=== PATIENT | female | born 1950 | race Caucasian/White ===

== ENCOUNTER 2023-03-06 17:32 | Emergency (ER) | payer MEDICARE, SELFPAY ==
--- NOTE | ~2023-03-06 | XR_ITS ---
EXAMINATION: XR SOFT TISSUE NECK CLINICAL INDICATION: Foreign body sensation with question of toothbrush bristle in the throat COMPARISON: None available. TECHNIQUE: 2 views of the soft tissue neck were obtained. FINDINGS: Soft tissue films of the neck demonstrate a normal larynx, pharynx and upper trachea. No soft tissue swelling or opaque foreign body is demonstrated. Note made of some mild degenerative changes in the spine. The visualized lung apices appear unremarkable. XR/XR soft tissue neck IMPRESSION: Unremarkable examination. No radiopaque foreign body is seen.
[2023-03-06 18:12] VITALS: BP 155/77; PULSE 105; RESP 16; TEMP 36.3; O2SAT 96; BMI 28.7
--- NOTE | 2023-03-06 18:12 | ED_ITS ---
HPI - General Adult General Chief complaint: Skin/Abscess/Foreign Body Stated complaint: something stuck in her throat Time Seen by Provider: 03/06/23 18:38 Source: patient, RN notes reviewed and old records reviewed Mode of arrival: ambulatory History of Present Illness HPI narrative: 72-year-old female with a past medical history of HTN, diabetes, HLD, presenting to the ED complaining of foreign body sensation in throat/throat discomfort s/p eating a piece of turkey followed by brushing her teeth [employer]. States concern for toothbrush bristle being stuck in throat. Admits has been able to tolerate p.o. since incident however with continued pain. Denies difficulty/inability to swallow, SOB, throat closing sensation, fever/chills, nausea/vomiting. Denies eating fish or steak Onset (ago): hour(s) Related Data Allergies Allergy/AdvReac Type Severity Reaction Status Date / Time No Known Allergies Allergy Verified 03/06/23 18:12 Review of Systems Review of Systems: Constitutional: No Fever, No Chills ENT/Mouth: No Ear Pain, No Nasal Congestion, No Sinus Pain, No Hoarseness, + sore throat, No Rhinorrhea, No Swallowing Difficulty Cardiovascular: No Chest Pain, No SOB Respiratory: No Cough, No Wheezing Gastrointestinal: No Nausea, No Vomiting, No Abdominal painn Musculoskeletal: No joint pain, No Myalgias, No Joint Swelling Skin: No Skin Lesions, No rash Neuro: No Weakness Yes all other systems are reviewed and are negative Constitutional: Constitutional: Reports as per [facility] Past Medical History Attestation statement: The following information was validated with the patient. Source: old records reviewed Social History Smoked in Last 30 Days: No Use of substances other than those prescribed or required for medical reasons: No Advance Directives: No Advance Directives Information Provided: No Physical Exam ED Vital Signs: Vital Signs - 24 hr 03/06/23 18:12 Temperature 97.3 F Pulse Rate 105 H Respiratory Rate 16 Blood Pressure 155/77 H Pulse Oximetry 96 Oxygen Delivery Method Room Air BMI result Body Mass Index 28.7 Const General: cooperative, healthy appearing, no acute distress, alert and awake Orientation/consciousness: patient oriented x3 Limitations: no limitations HENMT Head: Yes normal to inspection and Yes atraumatic Ears: hearing grossly normal bilaterally, external ears normal and mastoids normal General nose exam: Normal external nose present Face and sinus: Yes normal facial exam Mouth: Normal oral and palatal mucosa present, no audible dysphonia and no drooling Throat: Yes posterior oropharynx normal, Yes tonsils normal, Yes uvula midline, No peritonsillar mass, No posterior oropharynx abnormal, No uvula laterally displaced and No uvular edema Eyes General: appearance normal, both eyes and all related structures EOM: EOMs intact bilaterally Neck Neck: Yes normal visual inspection, Yes no lymphadenopathy, Yes no meningeal signs, Yes supple, No anterior neck swelling and No torticollis Resp Effort & Inspection: normal respiratory effort, no respiratory distress and no stridor Auscultation: clear to auscultation bilaterally Cardio Rate: regular rate Skin Rashes: no rashes Wounds: no wounds Neuro General: patient oriented x3, tone normal and no meningeal signs Cranial nerves: Yes CN's II-XII intact bilaterally Gait exam (Neuro): Normal gait present Extrem General: Yes normal to inspection Course Course Course Narrative: RME: 72yo F w/PMHx HTN, DM, HLD c/o FB sensation to right throat s/p eating turkey followed by brushing teeth [employer]. States feels like toothbrush bristle stuc k in throat. denies SOB, difficulty/inability to swallow posterior oropharynx WNL, talking in complete sentences, uvula midline Tolerated PO Patricio Zora in waiting room Rapid strep, XR ordered Full HPI, ROS and PE to be performed by primary ED provider. -rapid strep negative 1939--XR soft tissue neck IMPRESSION: Unremarkable examination. No radiopaque foreign body is seen. > patient tolerating multiple packets of saltines in the emergency department without difficulty or choking. Discussed results and needed close follow-up with ENT. Results discussed with patient including worrisome signs and symptoms and strict return precautions, and when to return to the emergency department. They verbalized understanding and feel safe for discharge at this time. Medications Administered Discontinued Medications Generic Name Dose Route Start Last Admin Trade Name Freq PRN Reason Stop Dose Admin Lidocaine HCl 5 ml 03/06/23 18:14 03/06/23 19:24 Lidocaine Hcl Viscous 2 % 15 Ml Solution MUCOUS MEM 03/06/23 18:15 5 ml ONCE ONE Administration Medical Decision Making Medical Decision Making MDM Narrative: 72-year-old female with a past medical history of HTN, diabetes, HLD, presenting to the ED complaining of foreign body sensation in throat/throat discomfort s/p eating a piece of turkey followed by brushing her teeth [employer]. On exam tachycardic, anxious, tearful, talking in complete sentences, no respiratory distress, handling secretions, no drooling, tolerating p.o. patricio zora in the waiting room. Concern for esophageal abrasion vs ?FB. Low suspicion for stri cture, obstruction, ACS/PE or epiglottitis/strep or [employer]/retropharyngeal abscess Plan: Viscous lidocaine, x-ray soft tissue, rapid strep Please refer to course for remaining clinical decision making, interpretation of labs/imaging results, and discussions with consultants and/or family members. Differential Diagnosis Differential Diagnoses: The differential diagnosis associated with the presentation includes As above Lab Data [facility] Lab Attestation statement: I reviewed the patient's lab results. Labs: Lab Results 03/06/23 Range/Units 18:37 S. pyogenes GrpA RONNI Negative (Negative) Independent Interpretation I performed an independent interpretation of an: Plain X-Ray Radiology Impression Discussion of test interpretation with radiology: I have reviewed the radiologist's reading. External Record Review External record reviewed: Inpatient record, Office record, Outpatient record, Prior outpatient labs, Prior outpatient radiology, Primary care record and Outside ED record Tests considered The following testing was considered but not selected: As above Prescription Management I considered prescription management with: Pain Medication Discharge Plan Discharge Clinical Impression: Foreign body sensation, throat Patient Disposition: Home, Self-Care Instructions: Foreign Body in Pharynx (ED) Additional Instructions: You tested negative for strep throat Your x-ray is unremarkable New likely scratched her throat which is why you feel like there is something stuck Gargle with warm salt water You can swallow viscous lidocaine as needed Please follow-up with the ear nose throat specialist, they can go down her throat with a care read to take a look Is symptoms persist or worsen, you are unable to eat or drink, have nausea/vomiting, difficulties or inability to swallow return to the ED Referrals: Edna Guzmán MD [Physician] - Ernestine Astudillo, DNP, [employer] [Nurse Practitioner] - Hilary Fields PA [Physician [employer]] - Valentin Mccoy [Physician] - 3 days
[2023-03-06 18:49] LABS: IDNOW Serial# 08D9AD1C; Strep A Nucleic Acid Negative (Negative)
[2023-03-06] MEDS: Lidocaine HCl Viscous 2 % 15 ML SOLUTION 5 ML MUCOUS MEM (19:24)
--- NOTE | 2023-03-06 19:26 | PC.NURSE ---
medication administered per provider order. delay in medication administration d/t pt not being in [facility]. pt was in xray - xray was supposed to bring pt in when finished - pt was put back in waiting room. pt c/o 12/19 throat pain d/t swallowing bristle from tooth brush. airway patent. no sob/wob noted. able to speak in full/clear sentences w/o difficulty. respirations even and unlabored. lung sounds clear throughout.
== END 2023-03-06 20:13 | disposition home or self-care (01) ==
PROVIDERS: Physician Assistant; Emergency Provider Internal Medicine
DX: R09.A2 Foreign body sensation, throat (principal); R07.0 Pain in throat
CPT/HCPCS: 70360; 87651; 99284